=== PATIENT | male | born 1950 | race Caucasian/White ===

== ENCOUNTER 2022-01-24 13:40 | Emergency (ER) | payer BC, OTHER ==
[2022-01-24 13:49] VITALS: RESP 18; TEMP 98
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
[2022-01-24 15:13] VITALS: BP 126/78; PULSE 80
== END 2022-01-24 15:23 | disposition home or self-care (01) ==
LOC: EC 13:40 → SUPCPDRO 13:40 → EC 15:23
DX: M54.50 Low back pain, unspecified (principal); V69.49XA Driver of heavy transport vehicle injured in collision with other motor vehicles in traffic accident, initial encounter; Y92.410 Unspecified street and highway as the place of occurrence of the external cause
CPT/HCPCS: 72050; 72100; 99284